=== PATIENT | female | born 1975 | race Caucasian/White ===

== ENCOUNTER 2018-03-12 08:19 | Emergency (ER) | payer BC ==
[2018-03-12 08:25] VITALS: BP 130/84; PULSE 68; TEMP 98.1; BMI 21.9
--- NOTE | 2018-03-12 08:41 | PDOC ---
History of Present Illness - General Chief Complaint: Cold Symptoms Stated Complaint: LOWER BACK PAIN Time Seen by Provider: 03/12/18 08:28 History Source: Patient Exam Limitations: Clinical Condition - History of Present Illness Initial Comments: 03/12/18 08:39 Patient with h/o sciatica present with complains of persistent cough, runny nose , malaise and lower back and ribs pains from coughing so much. Patient report she was seen by PCP few days ago who prescribed her cough meds with codeine but she didnt take it because it made her drowsy. Denies fever, chills, V/V, urinary frequency or dysuria. Denies any other symptoms. Timing/Duration: 1 week Past History - Past Medical History Allergies/Adverse Reactions: Allergies Allergy/AdvReac Type Severity Reaction Status Date / Time No Known Allergies Allergy Verified 03/12/18 08:22 Home Medications: Ambulatory Orders Benzonatate [Tessalon Pearls -] 100 mg PO TID PRN #21 capsule 03/12/18 Ipratropium Sanford 2 spray NS BID PRN #1 spray 03/12/18 Methylprednisolone [Medrol Dose Kenrick] 4 mg PO ASDIR #21 tablet 03/12/18 Polyethylene Glycol 3350 [Miralax (For Bowel Prep) -] 17 gm PO DAILY #1 bottle 03/12/18 COPD: No - Suicide/Smoking/Psychosocial Hx Smoking History: Never smoked Hx Alcohol Use: No Drug/Substance Use Hx: No Review of Systems - Review of Systems Able to Perform ROS?: Yes Is the patient limited Ethiopian proficient: No Constitutional: Yes: Malaise. No: Chills, Fever HEENTM: Yes: Symptoms Reported, See HPI, Nose Congestion. No: Eye Pain, Blurred Vision, Tearing, Recent change in vision, Double Vision, Cataracts, Ear Pain, Ocular Prothesis, Ear Discharge, Nose Pain, Tinnitus, Nose Bleeding, Hearing Loss, Throat Pain, Throat Swelling, Mouth Pain, Dental Problems, Difficulty Swallowing, Mouth Swelling, Other Respiratory: Yes: Symptoms reported, See HPI, Cough, Productive cough (yellow sputum). No: Orthopnea, Shortness of Breath, SOB with Exertion, SOB at Rest, Stridor, Wheezing, Hemoptysis, Other Cardiac (ROS): No: Symptoms Reported, See HPI, Chest Pain, Edema, Irregular Heart Rate, Lightheadedness, Palpitations, Syncope, Chest Tightness, Other ABD/GI: No: Nausea, Vomiting : No: Burning, Dysuria, Discharge, Frequency, Urgency Musculoskeletal: Yes: See HPI, Back Pain (b/l lower back), Muscle Pain (lower back) Neurological: No: Headache, Numbness, Paresthesia, Tingling, Weakness, Dizziness All Other Systems: Reviewed and Negative *Physical Exam - Vital Signs Last Vital Signs Temp Pulse Resp BP Pulse Ox 98.1 F 68 18 130/84 99 03/12/18 08:22 03/12/18 08:22 03/12/18 08:22 03/12/18 08:22 03/12/18 08:22 - Physical Exam General Appearance: Yes: Nourished, Appropriately Dressed. No: Apparent Distress HEENT: positive: EOMI, GERALDINE, Normal ENT Inspection, TMs Normal, Pharynx Normal Neck: positive: Normal Thyroid, Supple Respiratory/Chest: positive: Lungs Clear, Normal Breath Sounds. negative: Chest Tender, Respiratory Distress, Accessory Muscle Use Cardiovascular: positive: Regular Rhythm, Regular Rate. negative: Murmur Gastrointestinal/Abdominal: positive: Flat, Soft. negative: Tender, Organomegaly Musculoskeletal: positive: Normal Inspection. negative: CVA Tenderness Extremity: positive: Normal Capillary Refill, Normal Inspection, Normal Range of Motion Integumentary: positive: Normal Color Neurologic: positive: Fully Oriented, Alert, Normal Mood/Affect Moderate Sedation - Procedure Monitoring Vital Signs: Procedure Monitoring Vital Signs Temperature 98.1 F 03/12/18 08:22 Pulse Rate 68 03/12/18 08:22 Respiratory Rate 18 03/12/18 08:22 Blood Pressure 130/84 03/12/18 08:22 O2 Sat by Pulse Oximetry (%) 99 03/12/18 08:22 ED Treatment Course - LABORATORY CBC & Chemistry Diagram: 03/12/18 09:00 03/12/18 09:00 - RADIOLOGY Radiology Studies Ordered: Category Date Time Status CHEST PA & LAT [RAD] Stat Radiology 03/12/18 08:35 Ordered Medical Decision Making - Medical Decision Making 03/12/18 08:43 Patient with h/o sciatica present with complains of persistent cough, runny nose , malaise and lower back and ribs pains from coughing so much. Patient report she was seen by PCP few days ago who prescribed her cough meds with codeine but she didnt take it because it made her drowsy.. lungs CTAB. normal cardio exam. no definite tenderness to lower back on exam. x- ray of lumbar sacral and chest ordered. symptoms likely URI vs Bronchitis with myalgia from coughing 03/12/18 10:09 Patient reports she has been having intermittent epigastric and left UQ on lateral side pains for 3 days now. No nausea or vomiting. Denies diarrhea or constipation. CBC, CMP labs ordered. KUB x-ray ordered to rule out kidney stone or any abdominal pathology. 03/12/18 10:50 CBC and chemistry lab are unremarkable. Urine test negative. Chest x- ray shows no acute infiltrate or pathology. KUB x-ray shows dilated bowel is otherwise normal. Patient is stable for discharge on Tessalon Perles and medrol- kenrick for URI symptoms and MiraLAX for abdominal complaints with PCP follow-up *DC/Admit/Observation/Transfer Diagnosis at time of Disposition: Cough URI (upper respiratory infection) Qualifiers: URI type: unspecified URI Qualified Code(s): J06.9 - Acute upper respiratory infection, unspecified Constipated Qualifiers: Constipation type: unspecified constipation type Qualified Code(s): K59.00 - Constipation, unspecified - Discharge Dispostion Disposition: HOME Condition at time of disposition: Stable Decision to Admit order: No - Prescriptions Prescriptions: Benzonatate [Tessalon Pearls -] 100 mg PO TID PRN #21 capsule PRN Reason: Cough Ipratropium [place] 2 spray NS BID PRN #1 spray PRN Reason: nasal congestion Methylprednisolone [Medrol Dose Kenrick] 4 mg PO ASDIR #21 tablet Polyethylene Glycol 3350 [Miralax (For Bowel Prep) -] 17 gm PO DAILY #1 bottle - Referrals - Patient Instructions Printed Discharge Instructions: DI for Viral Upper Respiratory Infection -- Adult, Increased Dietary Fiber May Improve Constipation Conditions With Pelvic Jose Additional Instructions: Your labs and x-ray was normal. Take medication as prescribed. Increase fluid intake. Follow up with primary care. - Post Discharge Activity
[2018-03-12 10:00] LABS: BASO % 0.6 % (0-2.0); EOS % 1.7 % (0-4.5); HEMATOCRIT 38.5 % (32.4-45.2); HEMOGLOBIN 13.9 GM/dL (10.7-15.3); MCH 33.7 pg (25.7-33.7); MCHC 36.1 g/dl (32.0-36.0); MEAN CELL VOLUME 93.6 fl (80-96); MEAN PLT VOLUME 8.5 fl (7.5-11.1); MONO % 7.7 % (3.8-10.2); PLATELET COUNT 197 K/MM3 (134-434); RBC 4.11 M/mm3 (3.60-5.2); RDW 12.4 % (11.6-15.6); WHITE BLOOD COUNT 5.1 K/mm3 (4.0-10.0)
[2018-03-12 10:32] LABS: ALBUMIN 3.9 g/dl (3.4-5.0); ALK PHOS 49 U/L (45-117); ANION GAP 6 MMOL/L (8-16); BILIRUBIN,TOTAL 0.8 mg/dL (0.2-1); BLOOD UREA NITROGEN 7 mg/dL (7-18); CALCIUM 9.3 mg/dL (8.5-10.1); CHLORIDE 104 mmol/L (98-107); CO2 30 mmol/L (21-32); CREATININE 0.8 mg/dL (0.55-1.3); GLUCOSE,RANDOM 84 mg/dL (74-106); POTASSIUM 4.2 mmol/L (3.5-5.1); SGOT/AST 19 U/L (15-37); SGPT/ALT 22 U/L (13-61); SODIUM 139 mmol/L (136-145); TOT PROT 6.8 g/dl (6.4-8.2)
== END 2018-03-12 10:58 | disposition home or self-care (01) ==
LOC: JERFT 08:19
DX: J06.9 Acute upper respiratory infection, unspecified (principal); K59.00 Constipation, unspecified; Z86.69 Personal history of other diseases of the nervous system and sense organs
CPT/HCPCS: 36415; 71046-TC-FY; 72100-TC-FY; 74018-TC-FY; 80053; 84703; 85025; 99281-25